=== PATIENT | male | born 1960 | race Caucasian/White ===

== ENCOUNTER 2017-11-02 14:56 | Emergency (ER) | payer MEDICARE, OTHER ==
[~2017-11-02] VITALS: Ht 185.4 cm; Wt 142.9 kg
[2017-11-02] MEDS ORDERED: LIDOCAINE 1% Multi-Dose 20 ML VIAL. IJ ONE (15:30)
[2017-11-02 15:56] VITALS: BP 132/88
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
[2017-11-02] MEDS ORDERED: TAMS0.4C97 (16:07)
[2017-11-02] MEDS ORDERED: DIAZ2TAB3 (16:07)
[2017-11-02] MEDS ORDERED: FURO-69 (16:07)
[2017-11-02] MEDS ORDERED: POTA20PA (16:07)
[2017-11-02] MEDS ORDERED: CLOP75TA (16:07)
[2017-11-02] MEDS ORDERED: SIMV5TAB5 (16:07)
[2017-11-02] MEDS ORDERED: ATEN25TA (16:07)
--- NOTE | 2017-11-02 16:11 | RAD ---
CT head without intravenous contrast History: Fall today, dizziness with neck pain. Comparison: None. Technique: Axial images are obtained of the head from the skull base through the vertex without IV contrast. Exposure: One or more of the following individualized dose reduction techniques were utilized for this examination: 1. Automated exposure control 2. Adjustment of the mA and/or kV according to patient size 3. Use of iterative reconstruction technique Findings: The ventricles are appropriate in size, shape, and location for the patient's age. No obvious intracranial mass, mass-effect, midline shift, hemorrhage or obvious acute infarction is identified. Basilar cisterns are patent. There is apparent high attenuation involving the posterior aspect of the right inferior orbit, may be artifact. Bone windows demonstrate no acute calvarial abnormality. The visualized paranasal sinuses appear clear. Impression: No acute intracranial process. Please note that CT can be relatively insensitive to acute ischemic infarction for up to [address] cervical spine Comparison: None. Technique: Noncontrast CT of the cervical spine was performed using helical technique. Axial, sagittal, coronal reconstructions were obtained. Exposure: One or more of the following individualized dose reduction techniques were utilized for this examination: 1. Automated exposure control 2. Adjustment of the mA and/or kV according to patient size 3. Use of iterative reconstruction technique Findings: There is no evidence of acute fracture or acute malalignment involving the cervical spine. No prevertebral soft tissue swelling is identified. Multilevel degeneration is present with facet and uncovertebral hypertrophy as well as degenerative disc disease. There is mild reversal of normal cervical lordosis from degeneration. Impression: 1. No evidence of acute traumatic injury involving the cervical spine. 2. Degeneration. Electronically signed by: Junaid Gomes MD (11/02/2017 4:08 PM) [facility]
--- NOTE | 2017-11-02 16:16 | RAD ---
History: Fall today, right hand pain. Comparison: None. Findings: PA, lateral, and oblique views of the right hand. No acute fracture or dislocation is identified. Impression: No acute osseous traumatic injury identified. Electronically signed by: Junaid Gomes MD (11/02/2017 4:14 PM) [facility]
[2017-11-02] MEDS ORDERED: ACET-704 PO (16:22)
--- NOTE | 2017-11-03 08:31 | RAD ---
Chest, single view, 11/02/2017: History: Fall, injury No previous chest radiograph is available at this time for comparison purposes. There has been a previous medial sternotomy. A small electronic device is projected over the left lower chest. The heart size and pulmonary vascularity are normal. Loss of definition of the left heart border is probably due to a prominent epicardial fat pad versus scarring. No definite pulmonary infiltrate is seen. There is no evidence of pleural fluid or pneumothorax. IMPRESSION: 1. Probable lingular scarring. 2. No acute abnormality is detected.
== END 2017-11-02 16:33 | disposition home or self-care (01) ==
LOC: ER 14:56
DX: S09.90XA Unspecified injury of head, initial encounter (principal); S61.411A Laceration without foreign body of right hand, initial encounter; E66.01 Morbid (severe) obesity due to excess calories; I11.9 Hypertensive heart disease without heart failure; I25.810 Atherosclerosis of coronary artery bypass graft(s) without angina pectoris; I48.91 Unspecified atrial fibrillation; Z79.02 Long term (current) use of antithrombotics/antiplatelets; W01.198A Fall on same level from slipping, tripping and stumbling with subsequent striking against other object, initial encounter; Y93.89 Activity, other specified; Y99.8 Other external cause status; Y92.89 Other specified places as the place of occurrence of the external cause
CPT/HCPCS: 12002; 70450; 71045; 72125; 73130; 96372; 99284; J3010

== ENCOUNTER 2017-11-11 18:06 | Emergency (ER) | payer MEDICARE, OTHER ==
[~2017-11-11] VITALS: Ht 182.9 cm; Wt 142.0 kg
[~2017-11-11 18:06] MED LIST: ACET-704 PO; ATEN25TA; CLOP75TA; DIAZ2TAB3; FURO-69; POTA20PA; SIMV5TAB5; TAMS0.4C97
[2017-11-11 18:15] VITALS: BP 133/71
--- NOTE | 2017-11-11 18:39 | PHYS DOC ---
Past History Past Medical History: A-Fib, CAD, Heart Disease, Hypertension Past Surgical History: Coronary Bypass Surgery Smoking: Non-smoker Alcohol Use: None Drug Use: None Adult General Chief Complaint Chief Complaint: SUTURE/STAPLE REMOVAL HPI HPI Patient is a 57 year old male who presents to the emergency department requesting removal of sutures. The patient was seen in the emergency department here at [facility] on November 02, 2017 after suffering a laceration to the thenar eminence of the right hand. The patient received 5 sutures for repair at that time. The patient denies any complaints today. Patient states that his wound has been healing without incident. Patient denies any other complaints and is here for his sutures to be removed. Review of Systems Review of Systems Constitutional: Denies fever or chills [] Musculoskeletal: Denies back pain or joint pain [] Integument: Denies rash or skin lesions [] Neurologic: Denies headache, focal weakness or sensory changes [] All other systems were reviewed and found to be within normal limits, except as documented in this note. Allergies Allergies Allergies Coded Allergies Type Severity Reaction Last Updated Verified No Known Drug Allergies 11/02/17 No Physical Exam Physical Exam Constitutional: Well developed, well nourished, no acute distress, non-toxic appearance. [] HENT: Normocephalic, atraumatic, bilateral external ears normal, oropharynx moist, no oral exudates, nose normal. [] Skin: Warm, dry, no erythema, no rash, laceration of right thenar eminence appears to be healing well with no surrounding erythema and no purulent drainage. [] Extremities: No tenderness, no cyanosis, no clubbing, ROM intact, no edema. [] Neurologic: Alert and oriented X 3, normal motor function, normal sensory function, no focal deficits noted. [] Current Patient Data Vital Signs Vital Signs Date Time Temp Pulse Resp B/P (MAP) Pulse Ox O2 Delivery O2 Flow Rate FiO2 11/11/17 18:15 83 16 95 Room Air Lab Results Not performed EKG EKG Not performed[] Radiology/Procedures Radiology/Procedures Indication: Right hand laceration with sutures in place for 10 days Procedure: The patient was placed in the appropriate position and 5 Ethilon sutures were removed by the emergency department nurse without difficulty. Other items: Mild dehiscence was present after removal of sutures. 3 Steri- Strips were applied transversely to the wound to improve proximity of wound edges. The patient tolerated the procedure without difficulty. Complications: None[] Course & Med Decision Making Course & Med Decision Making Pertinent Labs and Imaging studies reviewed. (See chart for details) Patient's sutures were removed in the emergency department and Steri-Strips were applied to the wound as outlined in the procedure note. Advised patient that these Steri-Strips would fall off in approximately 7 days. Advised follow- up with patient's primary doctor as needed and return to emergency department for any worsening symptoms. Patient voiced understanding and in agreement with treatment plan. Dragon Disclaimer Dragon Disclaimer This electronic medical record was generated, in whole or in part, using a voice recognition dictation system. Departure Departure: Impression: Primary Impression: Visit for suture removal Disposition: 01 HOME, SELF-CARE Condition: GOOD Referrals: MAGI CASAS MD (PCP) Patient Instructions: Suture Removal-Brief Additional Instructions: Follow-up with your primary doctor as needed. Return to the emergency department for any worsening symptoms. KATIE NÚÑEZ MD November 11, 2017 18:39
== END 2017-11-11 18:49 | disposition home or self-care (01) ==
LOC: ER 18:06
DX: S61.411D Laceration without foreign body of right hand, subsequent encounter (principal); I48.91 Unspecified atrial fibrillation; I11.9 Hypertensive heart disease without heart failure; I25.810 Atherosclerosis of coronary artery bypass graft(s) without angina pectoris; X58.XXXD Exposure to other specified factors, subsequent encounter
CPT/HCPCS: 99282